=== PATIENT | male | born 1950 | race Caucasian/White ===

== ENCOUNTER 2016-08-31 12:01 | Outpatient (CLI) ==
[2015-10-25 02:20] VITALS: BMI 25.1
[2016-08-31 12:29] LABS: BILIRUBIN,URINE Negative (NEGATIVE); KETONES,URINE Negative (NEGATIVE); LEUKOCYTE ESTERASE ,URINE 1+ (NEGATIVE); NITRITE,URINE Negative (NEGATIVE); PROTEIN,URINE Negative (NEGATIVE); URINE, BLOOD Negative (NEGATIVE)
[2016-08-31 12:32] LABS: ADD URINE MICROSCOPIC YES; BACTERIA,URINE 1+ (NOT PRESENT)
== END 2016-08-31 12:02 | disposition home or self-care (01) ==
LOC: LAB 12:01
PROVIDERS: ATTEND Family Medicine
DX: R30.0 Dysuria (principal)
CPT/HCPCS: 81001; 87086

== ENCOUNTER 2016-10-21 12:05 | Outpatient (CLI) ==
[2015-10-25 02:20] VITALS: BMI 25.1
--- NOTE | 2016-10-21 13:24 | DI ---
EXAM: Chest two view, frontal and lateral views. HISTORY: Cough. COMPARISON: 12/06/2015, 04/24/2015. FINDINGS: The heart size is normal. There is no pulmonary vascular congestion. The lungs are constantine r save for stable right basilar scarring and calcified granulomatous changes. No pleural effusion o r pneumothorax is seen. No acute osseous abnormality identified. Since the prior study, there has been no significant interval change. IMPRESSION: No acute cardiopulmonary process.
== END 2016-10-21 12:06 | disposition home or self-care (01) ==
LOC: RAD 12:05
PROVIDERS: ATTEND Family Medicine
DX: R05 Cough (principal); J32.9 Chronic sinusitis, unspecified; J40 Bronchitis, not specified as acute or chronic

== ENCOUNTER 2017-06-27 10:00 | Outpatient (RCR) ==
[2015-10-25 02:20] VITALS: BMI 25.1
== END 2017-07-10 ==
LOC: NEWBEG 10:00
PROVIDERS: ATTEND Psychiatry & Neurology Psychiatry
DX: F33.2 Major depressive disorder, recurrent severe without psychotic features (principal); F01.50 Vascular dementia, unspecified severity, without behavioral disturbance, psychotic disturbance, mood disturbance, and anxiety
CPT/HCPCS: 90853; 99213